=== PATIENT | male | born 1955 | race Caucasian/White ===

== ENCOUNTER → 2024-02-27 07:42 | Outpatient (REF) | payer MEDICARE, OTHER, SELFPAY ==
[2024-02-27 09:22] LABS: Hematocrit 41.8 % (39.0-52.0); Hemoglobin 14.5 g/dL (13.0-18.0); Mean Corp Hgb Conc. 34.7 g/dL (33.0-37.0); Mean Corpuscular Hgb 32.7 pg (27.0-31.0); Mean Corpuscular Volume 94.1 fL (80.0-94.0); Mean Platelet Volume 9.9 fL (7.4-10.4); Platelet Count 172 10^3/uL (130-400); Red Blood Cell Count 4.44 10^6/uL (4.70-6.10); Red Cell Dist. Width 12.7 % (11.5-14.5); White Blood Cell Count 5.4 10^3/uL (4.8-10.8)
[2024-02-27 10:02] LABS: Blood Urea Nitrogen 28 mg/dl (9-20); Calcium 9.7 mg/dl (8.4-10.2); Carbon Dioxide 26 mmol/L (22-30); Chloride 101 mmol/L (98-107); Glucose 135 mg/dl (70-99); Potassium 4.5 mmol/L (3.5-5.1); Sodium 137 mmol/L (135-145); eGFR > 60.00
== END ==
LOC: SDSPAT 07:42
PROVIDERS: ATTENDING PHYSICIAN Podiatrist Foot & Ankle Surgery; FAMILY PHYSICIAN Family Medicine
DX: Z01.818 Encounter for other preprocedural examination (principal)
CPT/HCPCS: 36415; 80048; 85027

== ENCOUNTER 2024-03-09 06:27 | Day surgery (SDC) | payer MEDICARE, OTHER, SELFPAY ==
[2024-02-27 13:02] VITALS: BMI 27.6
[2024-03-09 10:47] VITALS: BP 135/77; BMI 27.6
[2024-03-09 11:04] LABS: Glucose - Point of Care 119 mg/dl (70-99)
[2024-03-09 13:25] VITALS: BP 120/72
[2024-03-09 13:31] LABS: Glucose - Point of Care 105 mg/dl (70-99)
[2024-03-09 13:45] VITALS: BP 112/74
[2024-03-09 14:00] VITALS: BP 110/76
[2024-03-09 14:02] VITALS: BP 110/76
== END 2024-03-09 14:25 | disposition home or self-care (01) ==
LOC: SDS 06:27
PROVIDERS: ATTENDING PHYSICIAN Podiatrist Foot & Ankle Surgery
DX: M67.472 Ganglion, left ankle and foot (principal)
CPT/HCPCS: 28090; 88304; 82962

== ENCOUNTER 2024-10-23 11:19 | Emergency (ER) | payer MEDICARE, OTHER, SELFPAY ==
[2024-10-23 11:24] VITALS: BP 142/81
[2024-10-23 11:46] VITALS: BMI 30.8
[2024-10-23 11:54] VITALS: BP 154/81
--- NOTE | 2024-10-23 12:01 | ED.GENMED ---
History of Present Illness
<Yayo Mcmahan MD - Last Filed: 10/23/24 16:19>
General
Chief Complaint: Numbness
Source: patient
Exam Limitations: none
Time Seen by Provider: 10/23/24 11:39
Nursing documentation reviewed up to this point in time: agreed with
History of Present Illness
History of Present Illness:
Patient presents to ED secondary to sudden onset of facial/head dizziness/numbness sensation, along with left upper arm numbness sensation, while he was at work, and approxi-1 hour prior to arrival. Patient states that he was under significant
stress, as there was a shortage of workers, when his symptoms started. Symptoms lasted approximately 30 minutes to 45 minutes, with gradual improvement. Denies previous history of similar symptoms. Denies blurred vision. Denies headache. Denies
difficulty with speech. Denies difficulty with ambulation. Denies weakness. Denies previous history of similar symptoms. Denies recent illness. Denies recent change in medications or diet.
Past History
<Yayo Mcmahan MD - Last Filed: 10/23/24 16:19>
Past History
ED Past Medical History: GERD, HTN, Hypercholesterolemia, NIDDM, Hypothyroidism, Psychiatric (Anxiety, depression) and Other (CLL hyponatremia)
ED Past Surgical History: Bowel resection (Colon Resection) and Orthopedic (Right shoulder)
Social History
Tobacco: Former smoker
Alcohol: Occasional
Personal: Single
Living: alone
Employment: Employed
Family History
Family History: Other (Noncontributory)
Review of Systems
<Yayo Mcmahan MD - Last Filed: 10/23/24 16:19>
Review of Systems
Allergies reviewed?: Yes
All Other Systems: ROS reviewed and negative except as documented in HPI and ROS
Constitutional: Reports no symptoms
Respiratory: Reports no symptoms
Cardiac: Reports no symptoms
ABD/GI: Reports no symptoms
Musculoskeletal: Reports no symptoms
Skin: Reports no symptoms
Neurological: Reports dizzy and numbness
Phy Exam
<Yayo Mcmahan MD - Last Filed: 10/23/24 16:19>
Physical Exam
Physical Exam:
Physical Exam
General: no apparent distress, not acutely ill. afebrile
Head: nc/at. eomi
Neck: supple. no meningeal signs.
Heart: s1/s2 regular rate and rhythm
Lungs: no acute respiratory distress. clear bilaterally
Abdomen: normal bowel sounds. not tender. no CVAT
Neuro: alert and oriented x 3. no focal neurological deficits. normal speech.
Skin: no rash
Psychiatric: well kept. interactive and cooperative
Extremities: no edema. no calf tenderness.
Course
<Yayo Mcmahan MD - Last Filed: 10/23/24 16:19>
Orders/Labs/Results
Orders:
Orders
10/23/24 11:47
CT Head W/o Iv Contrast Urgent
Comment:
Reason For Exam: dizziness, LUE numbness
10/23/24 11:48
Electrocardiogram (*1) Urgent
Reason for Study: Vertigo / Dizzy
NEUROLOGY CONSULT Urgent
Consulting Provider: Sang Gomez
Was physician already notified: Yes
Reason for consult: dizziness/LUE numbness
EKG- Treatment ONCE
10/23/24 11:51
Complete Blood Count/With Diff Urgent
Comprehensive Metabolic Panel Urgent
Magnesium Urgent
10/23/24 15:41
Aspirin Chewable [Low Strength Aspirin] 324 mg PO NOW STA
Clopidogrel Bisulfate [Plavix] 300 mg PO NOW STA
10/23/24 16:08
CT Head & Neck Angio W/wo IV Urgent
Comment:
Reason For Exam: dizziness/LUE numbness
10/24/24 08:00
Aspirin Low Dose EC [Aspir Low (Enteric Coated)] 81 mg PO DAILY
Clopidogrel Bisulfate [Plavix] 75 mg PO DAILY
Abnormal Lab Results
10/23/24
11:51
RBC 4.03 L 10^6/uL
(4.70-6.10)
Hgb 12.6 L g/dL
(13.0-18.0)
Hct 37.5 L %
(39.0-52.0)
MCH 31.3 H pg
(27.0-31.0)
Absolute Lymphs (auto) 0.9 L 10^3/uL
(1.2-3.4)
Lymphocytes % 15.5 L %
(20.5-51.1)
Sodium 134 L mmol/L
(135-145)
Glucose 140 H mg/dl
(70-99)
Total Protein 6.2 L g/dl
(6.3-8.2)
10/23/24 11:51
10/23/24 11:51
Vital Signs
Initial and Last Documented VS:
Initial Vital Signs
Temp Pulse Resp BP Pulse Ox
98.7 F 85 18 142/81 99
10/23/24 11:24 10/23/24 11:24 10/23/24 11:24 10/23/24 11:24 10/23/24 11:24
Last Documented Vital Signs
Temp Pulse Resp BP Pulse Ox
98.7 F 77 12 139/84 97
10/23/24 11:24 10/23/24 16:30 10/23/24 16:30 10/23/24 16:01 10/23/24 16:30
Mailelt;Vipul Biswas, DO - Last Filed: 10/23/24 18:41>
Orders/Labs/Results
Orders:
Orders
10/23/24 11:47
CT Head W/o Iv Contrast Urgent
Comment:
Reason For Exam: dizziness, LUE numbness
10/23/24 11:48
Electrocardiogram (*1) Urgent
Reason for Study: Vertigo / Dizzy
NEUROLOGY CONSULT Urgent
Consulting Provider: Sang Gomez
Was physician already notified: Yes
Reason for consult: dizziness/LUE numbness
EKG- Treatment ONCE
10/23/24 11:51
Complete Blood Count/With Diff Urgent
Comprehensive Metabolic Panel Urgent
Magnesium Urgent
10/23/24 15:41
Aspirin Chewable [Low Strength Aspirin] 324 mg PO NOW STA
Clopidogrel Bisulfate [Plavix] 300 mg PO NOW STA
10/23/24 16:08
CT Head & Neck Angio W/wo IV Urgent
Comment:
Reason For Exam: dizziness/LUE numbness
10/24/24 08:00
Aspirin Low Dose EC [Aspir Low (Enteric Coated)] 81 mg PO DAILY
Clopidogrel Bisulfate [Plavix] 75 mg PO DAILY
Abnormal Lab Results
10/23/24
11:51
RBC 4.03 L 10^6/uL
(4.70-6.10)
Hgb 12.6 L g/dL
(13.0-18.0)
Hct 37.5 L %
(39.0-52.0)
MCH 31.3 H pg
(27.0-31.0)
Absolute Lymphs (auto) 0.9 L 10^3/uL
(1.2-3.4)
Lymphocytes % 15.5 L %
(20.5-51.1)
Sodium 134 L mmol/L
(135-145)
Glucose 140 H mg/dl
(70-99)
Total Protein 6.2 L g/dl
(6.3-8.2)
10/23/24 11:51
10/23/24 11:51
Vital Signs
Initial and Last Documented VS:
Initial Vital Signs
Temp Pulse Resp BP Pulse Ox
98.7 F 85 18 142/81 99
10/23/24 11:24 10/23/24 11:24 10/23/24 11:24 10/23/24 11:24 10/23/24 11:24
Last Documented Vital Signs
Temp Pulse Resp BP Pulse Ox
98.7 F 77 12 139/84 97
10/23/24 11:24 10/23/24 16:30 10/23/24 16:30 10/23/24 16:01 10/23/24 16:30
<Yayo Mcmahan MD - Last Filed: 10/23/24 16:19>
MDM/Problems Addressed
MDM/Problems Addressed:
CT head: NAD
Pt evaluated in ED by , neurology. Recommends obtaining CTA head/Neck. Further recommendations to be provided after CTA is obtained
<Yayo Mcmahan MD - Last Filed: 10/23/24 16:19>
*Pulse Oximetry
SaO2: 99
Oxygen Mode of Delivery: Room air
*EKG
Interpreted by ED Provider?: Yes
EKG Intrepretation Date: 10/23/24
Heart Rate: 86
Rate: normal
Rhythm: sinus
[place]: normal axis
<Vipul Biswas DO - Last Filed: 10/23/24 18:41>
*Pulse Oximetry
Patient hypoxic: no
*Critical Care Note
Total Time (30-74mins, 75-104mins- exclusive of procedures): Not Applicable
<Vipul Biswas DO - Last Filed: 10/23/24 18:41>
Update Note
Update Note:
6:[address] angio, CT angio noted reviewed with neurology recommendations made for outpatient meds and follow-up
ED Attending Note
<Yayo Mcmahan MD - Last Filed: 10/23/24 16:19>
-
Portions of this chart may have been created with voice recognition software.� Occasional wrong word or��sound alike� substitutions may have occurred due to the inherent limitations of voice recognition software.
Discharge Plan
Departure
Patient Disposition: Home (Routine Discharge)
Date of Disposition: 10/23/24
Time of Disposition: 18:37
Patient with high blood pressure during this ER visit?: Yes
Condition: Good
Covid-19: Not Applicable
Discharge Problem:
Numbness and tingling
Instructions: Transient ischemic attack - ED (DC)
Prescriptions:
New
aspirin 81 mg tablet
81 mg PO DAILY Qty: 90 0RF
atorvastatin [Lipitor] 40 mg tablet
40 mg PO DAILY Qty: 90 0RF
clopidogrel [Plavix] 75 mg tablet
75 mg PO DAILY Qty: 21 0RF
No Action
pioglitazone 15 mg tablet
15 mg PO DAILY
amlodipine 2.5 mg tablet
2.5 mg PO DAILY
levothyroxine 100 mcg tablet
100 mcg PO DAILY
pantoprazole 40 mg tablet,delayed release (DR/EC)
40 mg PO QPM
atorvastatin 20 mg tablet
20 mg PO QPM
venlafaxine 150 mg capsule,extended release 24hr
150 mg PO DAILY
Theragen Tablet
1 tab PO DAILY
ascorbic acid (vitamin C) 500 mg Tablet
500 mg PO DAILY
zinc gluconate 50 mg Tablet
50 mg PO DAILY
ergocalciferol (vitamin D2) [Vitamin D2] 1,250 mcg (50,000 unit) Capsule
1,250 mcg PO MO
losartan 100 mg Tablet
100 mg PO HS
Referrals:
Priscila Gonzalez MD [Active, Cardiology] - Follow up in 1 week
Cm Maya MD [Family Provider, Family Practice]
Activity Restrictions/Additional Instructions:
Start aspirin 81 mg a day
Plavix 75 mg a day for 3 weeks
Lipitor 40 mg a day
Follow-up with your primary care provider in [facility] cardiology
Interventions
Interventions:
*Risk Screen - Suicide Last Done: 10/23/24 11:24
*General Assessment Last Done: 10/23/24 11:24
*Neglect/Abuse Screening Last Done: 10/23/24 11:24
*ED COVID-19 Vaccine History Last Done: 10/23/24 11:46
ED- Neurological Assessment Last Done: 10/23/24 11:46
Discharge Date and Time
Print Language: GREENLANDIC
[2024-10-23 12:05] LABS: Hematocrit 37.5 % (39.0-52.0); Hemoglobin 12.6 g/dL (13.0-18.0); Mean Corp Hgb Conc. 33.6 g/dL (33.0-37.0); Mean Corpuscular Volume 93.1 fL (80.0-94.0); Nucleated Red Blood Cells % 0 % (-); Platelet Count 160 10^3/uL (130-400); Red Cell Dist. Width 13.2 % (11.5-14.5)
[2024-10-23 12:09] VITALS: BP 124/76
[2024-10-23 12:14] LABS: ALT (SGPT) 31 U/L (0-50); AST (SGOT) 25 U/L (17-59); Albumin 4.2 g/dl (3.5-5.0); Alkaline Phosphatase 45 U/L (38-126); Blood Urea Nitrogen 17 mg/dl (9-20); Calcium 9.3 mg/dl (8.4-10.2); Carbon Dioxide 25 mmol/L (22-30); Chloride 104 mmol/L (98-107); Estimated Creatinine Clearance 113 ml/min; Glucose 140 mg/dl (70-99); Magnesium 1.8 mg/dl (1.6-2.3); Potassium 4.1 mmol/L (3.5-5.1); Sodium 134 mmol/L (135-145); Total Protein 6.2 g/dl (6.3-8.2); eGFR > 60.00
[2024-10-23 14:40] VITALS: BP 132/75
[2024-10-23 15:00] VITALS: BP 120/82
[2024-10-23] MEDS: PLAVIX 300 MG PO (15:59)
[2024-10-23] MEDS: LOW STRENGTH ASPIRIN 324 MG PO (16:00)
[2024-10-23 16:01] VITALS: BP 139/84
--- NOTE | 2024-10-23 16:30 | CON.NEURO ---
Neuro Assessment/Plan
Assessment
69 year old man with TIA. presenting with mild focal sensory symptoms. dizziness/vertigo without nausea/vomiting supports central etiology.
Head CT no bleed, normal.
Load ASA 324 and Plavix 300, lifelong ASA, 21 days of plavix, increase Lipitor 40
check CTA head/neck for large vessel disease and if ok he can be discharged; he needs to go home and take care of his dog
he should follow up with [facility] to discuss afib screening. primary machine shop inspector Sudarshan Bailey
No need to admit for MRI as seeing a stroke would not change analyst; it is more for ruling out brain tumors.
discussed with patient and Dr Mcmahan
Consultation
Order
Date of Consultation: 10/23/24
Requesting Provider: Martir
Reason for Consult: Vertigo
Subjective/Objective
Subjective Data
Date of Service: October 23, 2024
from ED notes
Patient presents to ED secondary to sudden onset of facial/head dizziness/numbness sensation, along with left upper arm numbness sensation, while he was at work, and approxi-1 hour prior to arrival. Patient states that he was under significant
stress, as there was a shortage of workers, when his symptoms started. Symptoms lasted approximately 30 minutes to 45 minutes, with gradual improvement. Denies previous history of similar symptoms. Denies blurred vision. Denies headache. Denies
difficulty with speech. Denies difficulty with ambulation. Denies weakness. Denies previous history of similar symptoms. Denies recent illness. Denies recent change in medications or diet.
patient reports all symptoms resolved. with the dizziness/vertigo he denied any nausea or vomiting. he is left handed.
Objective Data
Vital Signs
Temp Pulse Resp BP Pulse Ox
37.1 C 78 15 120/82 99
10/23/24 11:24 10/23/24 15:45 10/23/24 15:45 10/23/24 15:00 10/23/24 15:45
Lab Results
10/23/24 11:51
10/23/24 11:51
Sodium 134 mmol/L (135-145) L 10/23/24 11:51
Potassium 4.1 mmol/L (3.5-5.1) 10/23/24 11:51
BUN 17 mg/dl (9-20) 10/23/24 11:51
Glucose 140 mg/dl (70-99) H 10/23/24 11:51
Calcium 9.3 mg/dl (8.4-10.2) 10/23/24 11:51
Patient Allergies
No Known Allergies Allergy (Verified 10/23/24 11:24)
CVA Assessment
NIH Stroke Score
Level of Consciousness: 0 - Alert
LOC Questions: 0-Answers both correctly
LOC Commands: 0-Performs both correctly
Best Horizontal Gaze: 0-Normal
Visual [place]: 0=Normal, no visual loss
Facial Palsy: 0=Normal, symmetrical
Motor - Right Arm: 0=No drift 10 seconds
Motor - Left Arm: 0=No drift 10 seconds
Motor - Right Le-No drift 5 seconds
Motor - Left Le-No drift 5 seconds
Limb Ataxia: 0-Absent
Sensation: 0-Normal
Best Language: 0-No aphasia
Dysarthria: 0-Normal
Extinction and Inattention: 0-No abnormality
NIH Total Score:: 0
Physical Exam
-
AAOx3, speech clear, language intact
VFF, EOMI, face symmetric
full strength b/l UE/LE, sensation intact
FNF no ataxia
Medications
-
Active Medications
Generic Name Dose Route Start Last Admin
Trade Name Freq PRN Reason Stop Dose Admin
Aspirin 81 mg 10/24/24 08:00
Aspirin 81 Mg (Enteric Coated) Tablet PO 11/21/24 07:59
DAILY HILTON
Clopidogrel Bisulfate 75 mg 10/24/24 08:00
Clopidogrel 75 Mg Tablet PO 11/13/24 08:01
DAILY HILTON
Home Medications
�Medication �Instructions �Recorded
amlodipine 2.5 mg tablet 2.5 mg PO DAILY Blood pressure 03/16/22
atorvastatin 20 mg tablet 20 mg PO QPM High cholesterol 03/16/22
Held on 03/19/22.
Instructions: Resume on
03/29/22. Do not take this
while you are taking
Paxlovid. Only resume this
after you finish your course
of Paxlovid. Discuss with
your primary care provider
before resuming
Atorvastatin/Lipitor.
levothyroxine 100 mcg tablet 100 mcg PO DAILY Thyroid 03/16/22
pantoprazole 40 mg tablet,delayed 40 mg PO QPM Gastrointestinal issue 03/16/22
release
pioglitazone 15 mg tablet 15 mg PO DAILY Diabetes 03/16/22
venlafaxine 150 mg 150 mg PO DAILY 03/16/22
capsule,extended release 24 hr
ascorbic acid (vitamin C) 500 mg 500 mg PO DAILY 12/16/22
tablet
ergocalciferol (vitamin D2) 1,250 1,250 mcg PO MO 12/16/22
mcg (50,000 unit) capsule (Vitamin
D2)
losartan 100 mg tablet 100 mg PO HS 12/16/22
therapeutic multivitamin 1 tab PO DAILY 12/16/22
zinc gluconate 50 mg tablet 50 mg PO DAILY 12/16/22
== END 2024-10-23 18:52 | disposition home or self-care (01) ==
LOC: EMR 11:19
PROVIDERS: Emergency Medicine; CONSULT PHYSICIAN Psychiatry & Neurology Clinical Neurophysiology; EMERGENCY PHYSICIAN Emergency Medicine; FAMILY PHYSICIAN Family Medicine
DX: G45.9 Transient cerebral ischemic attack, unspecified (principal); R20.2 Paresthesia of skin; E03.9 Hypothyroidism, unspecified; Z85.6 Personal history of leukemia; E11.9 Type 2 diabetes mellitus without complications; E78.00 Pure hypercholesterolemia, unspecified; I10 Essential (primary) hypertension; Z87.891 Personal history of nicotine dependence; Z79.899 Other long term (current) drug therapy
CPT/HCPCS: 99284; 70450; 70496; 70498; 80053; 83735; 85025; 93005; Q9967

== ENCOUNTER → 2024-11-09 08:07 | Outpatient (REF) | payer MEDICARE, OTHER, SELFPAY | LOC: RCS 08:07 | PROVIDERS: ATTENDING PHYSICIAN Nurse Practitioner; FAMILY PHYSICIAN Family Medicine | DX: G45.9 Transient cerebral ischemic attack, unspecified (principal) | CPT/HCPCS: 93306 ==